=== PATIENT | female | born 1965 | race Caucasian/White ===

== ENCOUNTER 2019-06-03 17:27 | Emergency (ER) | payer MEDICARE ==
[~2019-06-03] VITALS: Ht 160 cm; Wt 134.5 kg
[2019-06-03 17:52] VITALS: Ht 160 cm; Wt 134.5 kg
[2019-06-03] MEDS ORDERED: STERAPRED DS 1010 MG PO (17:53)
[2019-06-03] MEDS ORDERED: ALBUTEROL SULF8.5 GM INH (17:54)
[2019-06-03] MEDS ORDERED: ZITHROMAX250 MG PO (17:54)
[2019-06-03 18:43] LABS: HEMATOCRIT 49.2 % (36.0-48.0); HEMOGLOBIN 16.9 g/dL (12-16); MCH 32.6 pg (26.0-34.0); MCHC 34.3 g/dL (31.0-37.0); MCV 94.8 fL (80.0-100.0); MEAN PLATELET VOLUME 9.5 fL (7.4-10.4); PLATELET COUNT 158 10x3/uL (130-400); RBC 5.19 10x6/uL (4.00-5.40); RDW 13.9 % (11.5-14.5); WBC 8.7 10x3/uL (4.8-10.8)
[2019-06-03 19:05] LABS: ALBUMIN 2.9 g/dL (3.4-5.0); ALKALINE PHOSPHATASE 145 U/L (46-116); ALT (SGPT) 41 U/L (10-68); BILIRUBIN - TOTAL 0.32 mg/dL (0.2-1.3); CALC OSMOLALITY 283 mosm/kg (275-300); CALCIUM 8.2 mg/dL (8.5-10.1); CARBON DIOXIDE 27.2 mmol/L (21.0-32.0); CHLORIDE - SERUM 106 mmol/L (98-107); CREATININE - SERUM 0.8 mg/dL (0.6-1.3); GLUCOSE 95 mg/dL (74-106); POTASSIUM - SERUM 4.1 mmol/L (3.5-5.1); PROTEIN - SERUM 6.3 g/dL (6.4-8.2); SODIUM 143 mmol/L (136-145); UREA NITROGEN 11 mg/dL (7-18); eGFR NON AFRICAN AMERICAN 79 mL/min (90-120)
[2019-06-03 19:17] LABS: EOSINOPHILS 8 % (0-7); LYMPHOCYTES 65 % (15-50); MONOCYTES 4 % (2-11); NEUTROPHILS 23 % (40-80)
[2019-06-03 19:18] LABS: PLATELET ESTIMATE NORMAL; TARGET CELLS OCC
[2019-06-03] MEDS ORDERED: TESSALON PERLE100 MG PO (19:43)
[2019-06-03 20:10] VITALS: BP 119/70
== END 2019-06-03 20:10 | disposition home or self-care (01) ==
LOC: D.ER 17:27
PROVIDERS: Family Medicine
DX: J06.9 Acute upper respiratory infection, unspecified (principal); R05 Cough